=== PATIENT | female | born 2000 | race Caucasian/White ===

== ENCOUNTER 2019-08-15 08:46 | Emergency (ER) | payer OTHER ==
[~2019-08-15] VITALS: Ht 170.2 cm; Wt 64.9 kg
[2019-08-15] MEDS ORDERED: Robaxin-750750 MG PO (11:03)
[2019-08-15] MEDS ORDERED: HYDR1TAB94 PO (11:03)
== END 2019-08-15 11:34 | disposition home or self-care (01) ==
LOC: ER 08:46
DX: M54.5 Low back pain (principal); F17.200 Nicotine dependence, unspecified, uncomplicated
CPT/HCPCS: 72100; 96374; 96375; 99283-25; A9270-GY; J1885

== ENCOUNTER 2020-02-27 11:18 | Emergency (ER) | payer BC, OTHER ==
[~2020-02-27] VITALS: Ht 165.1 cm; Wt 70.3 kg
[~2020-02-27 11:18] MED LIST: HYDR1TAB94 PO; Robaxin-750750 MG PO
[2020-02-27 12:04] LABS: Source, Urine Clean Catch
[2020-02-27 12:13] LABS: Appearance, Urine Clear (Clear); Bilirubin, Urine Neg (Neg); Blood, Urine 1+ (Neg); Color, Urine Yellow (P-Yellow); Glucose Qualitative, Urine Neg (Neg); Ketones, Urine Neg (Neg); Leukocyte Esterase, Urine 1+ (Neg); Nitrite, Urine Neg (Neg); Protein, Urine Neg (Neg); Specific Gravity, Urine 1.015 (1.003-1.022); Urobilinogen, Urine NORM (Normal)
[2020-02-27 12:32] LABS: Red Blood Cells, Urine 0-2 /hpf (0-2); Squamous Epithelial Cells Rare /hpf (Few); White Blood Cells, Urine 0-2 /hpf (0-5)
[2020-02-27 12:33] LABS: Amorphous Mod (0-Heavy); Bacteria Few /hpf
[2020-02-27] MEDS ORDERED: Diflucan150 MG PO (12:58)
== END 2020-02-27 13:05 | disposition home or self-care (01) ==
LOC: ER 11:18
PROVIDERS: Physician Assistant
DX: B37.3 Candidiasis of vulva and vagina (principal); F17.210 Nicotine dependence, cigarettes, uncomplicated; Z88.7 Allergy status to serum and vaccine; Z79.899 Other long term (current) drug therapy
CPT/HCPCS: 81001; 81025; 87077; 87086; 87186; 99283

== ENCOUNTER 2020-03-26 10:53 | Emergency (ER) | payer BC, OTHER ==
[~2020-03-26] VITALS: Ht 165.1 cm; Wt 77.1 kg
[~2020-03-26 10:53] MED LIST changes: +Diflucan150 MG PO
[2020-03-26] MEDS ORDERED: Norco 5-325 Ta1 EACH PO (12:00)
== END 2020-03-26 12:22 | disposition home or self-care (01) ==
LOC: ER 10:53
DX: K03.81 Cracked tooth (principal); F17.200 Nicotine dependence, unspecified, uncomplicated; Z88.7 Allergy status to serum and vaccine; Z79.899 Other long term (current) drug therapy
CPT/HCPCS: 64450; 96372-59; 99282-25; J1885

== ENCOUNTER 2020-08-17 07:53 | Emergency (ER) | payer BC, OTHER ==
[~2020-08-17] VITALS: Ht 165.1 cm; Wt 68.0 kg
[~2020-08-17 07:53] MED LIST changes: +Norco 5-325 Ta1 EACH PO
[2020-08-17 08:59] LABS: BASOPHILS ABSOLUTE AUTO 0.03 K/mm3 (0.00-0.23); BASOPHILS PERCENT AUTO 0 % (0-2); EOSINOPHILS ABSOLUTE AUTO 0.01 K/mm3 (0.00-0.68); EOSINOPHILS PERCENT AUTO 0 % (0-6); Hemoglobin 13.2 g/dL (11.5-16.0); IMMATURE GRAN ABSOLUTE AUTO 0.05 K/mm3 (0.00-0.10); IMMATURE GRAN PERCENT AUTO 0 % (0-1); LYMPHOCYTES ABSOLUTE AUTO 1.82 K/mm3 (0.84-5.20); LYMPHOCYTES PERCENT AUTO 13 % (21-46); MONOCYTES ABSOLUTE AUTO 1.16 K/mm3 (0.16-1.47); MONOCYTES PERCENT AUTO 8 % (4-13); Mean Corpuscular HGB 30.9 pg (26.0-34.0); Mean Corpuscular HGB Conc 33.8 g/dL (31.5-36.5); Mean Corpuscular Volume 91 fL (80-100); NEUTROPHILS ABSOLUTE AUTO 11.48 K/mm3 (1.96-9.15); NEUTROPHILS PERCENT AUTO 79 % (41-73); Platelet Count 289 K/mm3 (150-400); RDW Standard Deviation 40.5 fL (35.1-46.3); Red Blood Cell Count 4.27 M/mm3 (3.80-5.20); White Blood Cell Count 14.55 K/mm3 (4.00-11.30)
[2020-08-17 09:19] LABS: Beta Hcg Serum Pregnancy Negative (Negative); Mono Spot Negative (NEGATIVE)
[2020-08-17 09:21] LABS: Alanine Aminotransfer (ALT/SGP 14 U/L (12-78); Albumin, Blood 4.2 g/dL (3.4-5.0); Albumin/Globulin Ratio 1.1 (0.8-1.8); Alk Phos 56 U/L (50-136); Anion Gap 7 mmol/L (6-16); Aspartate Aminotrans (AST/SGOT 12 U/L (12-37); Bilirubin, Total 0.6 mg/dL (0.1-1.0); Blood Urea Nitrogen 7 mg/dL (8-24); Bun/Creatinine Ratio 9.1 (12.0-20.0); CO2, Blood 23 mmol/L (21-32); Calcium, Blood 9.5 mg/dL (8.5-10.1); Chloride, Blood 109 mmol/L (98-108); Creatinine, Blood 0.77 mg/dL (0.40-1.00); Globulin, Blood 3.7 g/dL (2.2-4.0); Glomerular Filtration Rate >60 (60-); Glucose, Blood 89 mg/dL (70-99); Potassium, Blood 3.5 mmol/L (3.5-5.5); Sodium, Blood 139 mmol/L (136-145); Total Protein, Blood 7.9 g/dL (6.4-8.2)
[2020-08-17 10:10] LABS: Source, Urine Clean Catch
[2020-08-17 10:18] LABS: Appearance, Urine Clear (Clear); Bilirubin, Urine Neg (Neg); Blood, Urine 5+ (Neg); Color, Urine Yellow (P-Yellow); Glucose Qualitative, Urine Neg (Neg); Ketones, Urine 3+ (Neg); Leukocyte Esterase, Urine Neg (Neg); Nitrite, Urine Neg (Neg); Protein, Urine Neg (Neg); Urobilinogen, Urine NORM (Normal)
[2020-08-17 10:38] LABS: Red Blood Cells, Urine 0-2 /hpf (0-2); Squamous Epithelial Cells Many /hpf (Few); White Blood Cells, Urine 0-2 /hpf (0-5)
[2020-08-17 10:39] LABS: Amorphous Light (0-Heavy); Bacteria Not Seen /hpf
== END 2020-08-17 11:32 | disposition home or self-care (01) ==
LOC: ER 07:53
PROVIDERS: Emergency Medicine
DX: J02.9 Acute pharyngitis, unspecified (principal)
CPT/HCPCS: 36415; 80053; 81001; 83690; 84703; 85025; 86308; 96374; 99283-25; A9270; J1100; J1885; J7030

== ENCOUNTER 2020-09-05 17:08 | Emergency (ER) | payer BC, OTHER ==
[~2020-09-05] VITALS: Ht 165.1 cm; Wt 72.6 kg
== END 2020-09-05 20:25 | disposition home or self-care (01) ==
LOC: ER 17:08
DX: K08.89 Other specified disorders of teeth and supporting structures (principal); Z98.890 Other specified postprocedural states; Z91.018 Allergy to other foods
CPT/HCPCS: 96372; 99282-25; A9270; J1885